=== PATIENT | male | born 1970 | race Caucasian/White ===

== ENCOUNTER 2017-01-21 06:59 | Day surgery (SDC) | payer BC ==
[~2017-01-21 06:59] MED LIST: RINGER'S SOLUTION,LACTATED 1,000 ML IV PRN
[2017-01-21] MEDS ORDERED: RINGER'S SOLUTION,LACTATED 1,000 ML IV ONE ×2 (07:24→08:55)
[2017-01-21 10:38] VITALS: BP 128/82
== END 2017-01-21 07:00 | disposition home or self-care (01) ==
LOC: AMB 06:59
PROVIDERS: ATTEND Allergy & Immunology
PROC: 0CBV8ZX Excision of Left Vocal Cord, Via Natural or Artificial Opening Endoscopic, Diagnostic (ICD-10-PCS; principal; 2017-01-21 08:00)
DX: J38.3 Other diseases of vocal cords (principal); R49.0 Dysphonia; Z68.30 Body mass index [BMI] 30.0-30.9, adult